=== PATIENT | female | born 1955 | race Caucasian/White ===

== ENCOUNTER 2016-04-19 09:17 | Day surgery (SDC) | payer OTHER ==
[~2016-04-19] VITALS: Ht 157.5 cm; Wt 103.3 kg
[~2016-04-19 09:17] MED LIST: AMLO2.5T78 PO; HYD25 PO; METF-382 PO; OMEP20CA16 PO
[2016-04-19] MEDS ORDERED: PROPOFOL 40 ML ONE (10:35)
[2016-04-19] MEDS ORDERED: ADV10050 INHALATION (10:50)
[2016-04-19 10:55] VITALS: Ht 157.5 cm; Wt 103.3 kg
[2016-04-19 11:01] VITALS: BP 183/81; PULSE 62; RESP 20
[2016-04-19 11:55] VITALS: BP 161/78; PULSE 55; RESP 18
--- NOTE | 2016-04-19 18:28 | GILP ---
DATE OF PROCEDURE: 04/19/2016 PROCEDURE PERFORMED: Colonoscopy. PREOPERATIVE DIAGNOSIS: Patient presenting with history of no significant medical problems. This i s a screening colonoscopy to rule out colon polyps. POSTOPERATIVE DIAGNOSES: 1. Diverticulosis all over the colon of moderate degree. No bleeding noted. 2. Minimal internal and external hemorrhoids. DESCRIPTION OF PROCEDURE: After informed written consent was obtained, the patient was asked to lie on the left lateral side. Intravenous anesthesia was given by anesthesiologist, Dr. Townsend. Wh en the patient became somnolent, the Olympus video colonoscope was introduced into the rectum and sc ope was advanced all the way to the cecum. The entire colon appeared normal. A moderate degree of diverticulosis noted all over the colon. They are small in size. No diverticulitis. No evidence o f neoplasm noted. Scope at this time was withdrawn from the cecum. On the way out, again further e valuation was carried out, which showed evidence of the same findings. Minimal internal hemorrhoids were noted on retroflexion and on the way out, minimal external hemorrhoids were noted and the proc edure was terminated. PLAN: Recommend repeat colonoscopy in 10 years. Dictated By: DIONTE PERALTA/NTS Conf#: [id number] DID#: [id number] CC: Dayna Espinal MD;*EndCC*
== END 2016-04-19 11:22 | disposition home or self-care (01) ==
LOC: GIL 09:17
PROVIDERS: ATTEND Internal Medicine Gastroenterology
DX: Z12.11 Encounter for screening for malignant neoplasm of colon (principal); K64.4 Residual hemorrhoidal skin tags; K64.8 Other hemorrhoids; K57.90 Diverticulosis of intestine, part unspecified, without perforation or abscess without bleeding; E11.9 Type 2 diabetes mellitus without complications
CPT/HCPCS: 45378; 82962; Z7610

== ENCOUNTER 2018-08-15 09:58 | Emergency (ER) | payer OTHER ==
[~2018-08-15] VITALS: Wt 104.0 kg
[~2018-08-15 09:58] MED LIST changes: +ADV10050 INHALATION; -HYD25 PO; +HYDR25TA6 PO; -METF-382 PO; +METF500T24 PO
[2018-08-15 10:02] VITALS: BP 160/77; PULSE 66; RESP 20
[2018-08-15] MEDS ORDERED: ONDANSETRON (ODT) 4 MG TAB ODT STA (10:16)
[2018-08-15] MEDS ORDERED: HYDROCODONE/APAP (5/325) TAB PO ONE (10:30)
[2018-08-15] MEDS ORDERED: IBUP-1542 PO (11:02)
--- NOTE | 2018-08-15 17:34 | ERD ---
ER Documentation Chief Complaint Chief Complaint right leg pain from a trip and fall this am no deformity noted. HPI 63-year-old female presented to the emergency department complaining of right- sided low back and tailbone pain after a fall which occurred just prior to arrival. She states she accidentally tripped over a kids toy that was on the ground causing her to fall backwards. she took [id number] pain medication prior to arrival with relief. Current pain level is moderate to severe. She denies any head injury or loss of consciousness or other symptoms or injuries at this time. ROS All systems reviewed and are negative except as per history of present illness. Medications Home Meds Active Scripts Ibuprofen* (Motrin*) 600 Mg Tab, 600 MG PO Q6, #30 TAB Prov:DEVI MAO PA-C 08/15/18 Reported Medications Salmeterol Xinaf-Fluticasone* (Advair*) 100/50 Diskus Inhaler, 1 INH INHALATION BID, #1 INHALER 04/19/16 Hydrochlorothiazide* (Hydrochlorothiazide*) 25 Mg Tab, 25 MG PO DAILY, TAB 03/14/14 Omeprazole* (Omeprazole*) 20 Mg Capsule.dr, 20 MG PO DAILY, CAP 03/14/14 Amlodipine Besylate* (Amlodipine Besylate*) 2.5 Mg Tablet, 5 MG PO DAILY, TAB 03/14/14 Metformin Hcl* (Metformin Hcl*) 500 Mg Tablet, 500 MG PO BID, TAB 03/14/14 Allergies Allergies: Coded Allergies: No Known Drug Allergies (Unverified Allergy, Unknown, 03/14/14) PMhx/Soc History of Surgery: Yes (hysterectomy 1992, hernia repair 2012) Anesthesia Reaction: No Hx Neurological Disorder: No Hx Respiratory Disorders: Yes (asthma - advair bid) Hx Cardiac Disorders: Yes (HTN, POSSIBLE HIGH CHOLESTEROL) Hx Psychiatric Problems: No Hx Miscellaneous Medical Probl: No Hx Alcohol Use: No Hx Substance Use: No Hx Tobacco Use: No FmHx Family History: No diabetes Physical Exam Vitals Vital Signs Date Temp Pulse Resp B/P (MAP) Pulse Ox O2 O2 Flow FiO2 Time Delivery Rate 08/15/18 98.2 66 20 160/77 94 10:02 (104) Physical Exam Const: No acute distress Head: Atraumatic Eyes: Normal Conjunctiva ENT: Normal External Ears, Nose and Mouth. Neck: Full range of motion. No meningismus. Resp: Clear to auscultation bilaterally Cardio: Regular rate and rhythm, no murmurs Skin: No petechiae or rashes Back: No midline or flank tenderness. Tenderness palpation of the paraspinal muscles of the lumbar spine on the right. Positive straight leg raise on the right. Subjective tenderness to palpation of the coccyx. No bruising noted. Ext: No cyanosis, or edema Neur: Awake and alert Psych: Normal Mood and Affect Results 24 hrs Current Medications Medications Dose Sig/Kalee Start Time Status Last (Trade) Ordered Route PRN Stop Time Admin Dose Reason Admin 1 tab ONCE ONCE 08/15/18 DC 08/15/18 Acetaminophen PO 10:30 10:22 / 08/15/18 10:31 Hydrocodone Bitart (Bent (5/325)) Ondansetron 4 mg ONCE STAT 08/15/18 DC 08/15/18 HCl (Zofran ODT 10:16 10:22 Odt) 08/15/18 10:18 [place] [address] Radiology Main Line: [phone] DIAGNOSTIC IMAGING REPORT Patient: CECIL BROWNE : 1955 Age: 63 Sex: F MR #: [id number] DOS: 08/15/18 0000 Ordering MD: DEVI MAO PA-C Location: [facility] Room/Bed: PROCEDURE: XR Hip. CLINICAL INDICATION: Trauma TECHNIQUE: AP and frog lateral views of the right hip were performed. COMPARISON: None. FINDINGS: There is normal mineralization and alignment. No fracture or osseous lesion is identified. There are normal joints without evidence of arthritis or effusion. The soft tissues are unremarkable. IMPRESSION: Unremarkable right hip. .Enrique Spencer MD, Date Time Electronically viewed and signed by .Enrique Spencer MD, MD on 08/15/2018 10:47 .A/ CC: DEVI MAO PA-C [phone] [place] [address] Radiology Main Line: [phone] DIAGNOSTIC IMAGING REPORT Patient: CECIL BROWNE : 1955 Age: 63 Sex: F MR #: [id number] DOS: 08/15/18 0000 Ordering MD: DEVI MAO PA-C Location: [facility] Room/Bed: PROCEDURE: XR sacrum and coccyx . CLINICAL INDICATION: tailbone pain sp fall TECHNIQUE: AP and lateral views of the sacrum and coccyx were performed. COMPARISON: No prior studies are available for comparison. FINDINGS: There is normal sacral and coccygeal mineralization and alignment. No fracture or subluxation is seen. The sacroiliac joints appear normal. The soft tissues are unremarkable. IMPRESSION: Unremarkable x-ray examination of the sacrum and coccyx. .Enrique Spencer MD, MD Date Time Electronically viewed and signed by .Enrique Spencer MD, MD on 08/15/2018 10:47 .A/ CC: DEVI MAO PA-C [id number] Procedures/MDM 63-year-old female resenting to the emergency department complaints of right lower back pain and tailbone pain after a fall which occurred just prior to arrival. X-rays were negative for any sign of fracture. The patient was administered Bent in the department with good response. She was feeling im proved prior to discharge. No evidence of life-threatening or emergent pathology. The patient was in agreement with the diagnosis, plan, need for follow-up, return precautions. Patient's blood pressure was elevated (>120/80) but appears stable without evidence of hypertension emergency or urgency. The patient is to follow-up and pursue outpatient monitoring and therapy with their primary care physician within 1 week and return immediately if they have any new, worsening, or concerning symptoms. Departure Diagnosis: Primary Impression: Coccyx contusion Additional Impression: Fall with no significant injury Condition: Fair Patient Instructions: Fall Prevention Referrals: [facility] YOU HAVE RECEIVED A MEDICAL SCREENING EXAM AND THE RESULTS INDICATE THAT YOU DO NOT HAVE A CONDITION THAT REQUIRES URGENT TREATMENT IN THE EMERGENCY DEPARTMENT. FURTHER EVALUATION AND TREATMENT OF YOUR CONDITION CAN WAIT UNTIL YOU ARE SEEN IN YOUR DOCTORS OFFICE WITHIN THE NEXT 1-2 DAYS. IT IS YOUR RESPONSIBILITY TO MAKE AN APPOINTMENT FOR FOLOW-UP CARE. IF YOU HAVE A PRIMARY DOCTOR --you should call your primary doctor and schedule an appointment IF YOU DO NOT HAVE A PRIMARY DOCTOR YOU CAN CALL OUR PHYSICIAN REFERRAL HOTLINE AT IF YOU CAN NOT AFFORD TO SEE A PHYSICIAN YOU CAN CHOSE FROM THE FOLLOWING [facility] [address] [facility]. [facility] [address] [facility] [facility] [facility] [address] [facility] [address] [facility] [address] [facility]. [facility] [address] Additional Instructions: Call your primary care doctor TOMORROW for an appointment during the next 1-2 days.See the doctor sooner or return here if your condition worsens before your appointment time. DEVI MAO PA-C August 15, 2018 17:34
== END 2018-08-15 11:22 | disposition home or self-care (01) ==
LOC: FTE 09:58
DX: S30.0XXA Contusion of lower back and pelvis, initial encounter (principal); I10 Essential (primary) hypertension; J45.909 Unspecified asthma, uncomplicated; W01.0XXA Fall on same level from slipping, tripping and stumbling without subsequent striking against object, initial encounter; Z79.84 Long term (current) use of oral hypoglycemic drugs
CPT/HCPCS: 72220; 73510; Z7502; Z7610